=== PATIENT | female | born 1940 | race Caucasian/White ===

== ENCOUNTER → 2016-07-18 | Outpatient (CLI) | payer MEDICARE, OTHER ==
--- NOTE | 2016-07-18 13:30 | Diagnostic Imaging Report ---
EXAM: DIGITAL MAMMO BILAT DIAGNOSTIC. TECHNIQUE: Digital diagnostic mammography was performed bilaterally with a Computer Aided Detection (CAD) system. INDICATION: Left breast pain. History of left breast cancer. COMPARISON: Multiple mammograms from 12/01/2012 through 06/07/2014. DENSITY: Scattered areas of fibroglandular density. FINDINGS: No significant change. There are post operative changes, including numerous metallic surgical clips, in the upper inner left breast including numerous surgical clips. Benign calcifications in both breasts. No mass, calcification, or architectural distortion suspicious for malignancy in either breast. IMPRESSION: No mammographic findings suspicious for malignancy. RECOMMENDATION: Given the complaint of pain in the left breast, a targeted ultrasound will also be performed today. ACR BI-RADS Category 0: Incomplete. (Needs additional imaging evaluation). Result letter will be mailed to the patient. Note: At least 10% of breast cancer is not imaged by mammography. Dictated by: Dictated on workstation # [id number]
--- NOTE | 2016-07-18 13:32 | Diagnostic Imaging Report ---
EXAM: US BREAST LIMITED, LEFT. INDICATION: Left breast pain. History of left breast cancer. COMPARISON: Prior mammograms from 12/01/2012 through 06/07/2014 and the diagnostic mammogram performed today. DENSITY: Scattered areas of fibroglandular density. FINDINGS: An ultrasound survey of the left breast demonstrates the post operative changes including scarring and several shadowing metallic surgical clips. There are a couple of benign-appearing lymph nodes in the left breast and left axilla which were documented. There is no mass or fluid collection. IMPRESSION: No ultrasound findings suspicious for malignancy in the left breast. RECOMMENDATION: Routine screening mammography in one year. ACR BI-RADS Category 2: Benign findings. Dictated by: Dictated on workstation # [id number]
== END ==
LOC: RAD 10:57
PROVIDERS: ATTEND Family Medicine
DX: N64.4 Mastodynia (principal)
CPT/HCPCS: 76642; G0204